=== PATIENT | female | born 1955 | race Caucasian/White ===

== ENCOUNTER 2017-12-02 12:37 | Emergency (ER) | payer OTHER | END 2017-12-02 15:04 | disposition home or self-care (01) | LOC: FTE 15:04 | DX: R21 Rash and other nonspecific skin eruption (principal); E11.9 Type 2 diabetes mellitus without complications; I10 Essential (primary) hypertension; Z79.4 Long term (current) use of insulin | CPT/HCPCS: 99282 ==